=== PATIENT | female | born 1980 | race Caucasian/White ===

== ENCOUNTER → 2024-03-14 | Outpatient (REF) | payer MEDICARE ==
[2024-03-14 13:10] LABS: IRON (FE) 119 UG/DL (50-170); PERCENT SATURATION 40.9 % (13.2-45.0); TOTAL IRON BINDING CAPACITY 291 UG/DL (250-425)
[2024-03-14 13:11] LABS: ALBUMIN 3.8 G/DL (3.2-5.2); ALKALINE PHOSPHATASE 63 U/L (35-104); ALT/SGPT 31 U/L (7.0-40); AST/SGOT 31 U/L (<34); BILIRUBIN,TOTAL 0.9 MG/DL (0.3-1.2); BLOOD UREA NITROGEN 11 MG/DL (9-23); CALCIUM LEVEL 9.3 MG/DL (8.5-10.1); CARBON DIOXIDE LEVEL 29 MMOL/L (20-31); CHLORIDE LEVEL 106 MMOL/L (98-107); CHOLESTEROL LEVEL 108 MG/DL (<200); CHOLESTEROL RISK RATIO 1.95 (<5); CREATININE FOR GFR 0.52 MG/DL (0.55-1.30); GLOMERULAR FILTRATION RATE > 60.0 (>58); GLUCOSE, FASTING 79 MG/DL (60-100); HDL CHOLESTEROL 55.2 MG/DL (>40); LDL CHOLESTEROL 43.2 MG/DL (<100); NON-HDL-C 52.8 MG/DL; POTASSIUM SERUM 4.5 MMOL/L (3.5-5.1); SODIUM LEVEL 137 MMOL/L (136-145); TOTAL PROTEIN 6.8 G/DL (5.7-8.2); TRIGLYCERIDES LEVEL 48 MG/DL (<150)
[2024-03-14 13:12] LABS: FREE T4 1.59 NG/DL (0.89-1.76); THYROID STIMULATING HORMONE 4.234 uIU/ML (0.55-4.78)
[2024-03-14 13:13] LABS: BASO % 0.6 % (0.0-1.0); EOS # 0.1 10^3/uL (0.0-0.5); EOS % 1.5 % (0.0-3.0); HEMATOCRIT 39.2 % (36.0-47.0); HEMOGLOBIN 13.3 g/dl (12.0-15.5); LYMPH # 1.6 10^3/uL (1.5-5.0); LYMPH % 29.9 % (24.0-44.0); MEAN CORPUSCULAR HEMOGLOBIN 34.5 pg (27.0-33.0); MEAN CORPUSCULAR HGB CONC 33.9 g/dl (32.0-36.5); MEAN CORPUSCULAR VOLUME 101.8 fl (80.0-96.0); MONO # 0.5 10^3/uL (0.0-0.8); MONO % 8.3 % (2.0-8.0); NEUTROPHILS # 3.2 10^3/uL (1.5-8.5); NEUTROPHILS % 59.3 % (36.0-66.0); PLATELET COUNT, AUTOMATED 244 10^3/uL (150-450); RED BLOOD COUNT 3.85 10^6/uL (4.00-5.40); VITAMIN B12 LEVEL > 2000 PG/ML (211-911); WHITE BLOOD COUNT 5.4 10^3/uL (4.0-10.0)
== END ==
LOC: M SFHCPLAZ 09:52
PROVIDERS: ATTEND Nurse Practitioner Family
DX: D50.9 Iron deficiency anemia, unspecified (principal); R74.8 Abnormal levels of other serum enzymes; E03.9 Hypothyroidism, unspecified; Z13.220 Encounter for screening for lipoid disorders; E55.9 Vitamin D deficiency, unspecified; E53.8 Deficiency of other specified B group vitamins